=== PATIENT | female | born 1990 | race African-American/Black ===

== ENCOUNTER 2018-05-25 07:41 | Day surgery (SDC) ==
[2018-05-19 10:08] LABS: URINE SOURCE VOIDED
[2018-05-19 10:20] LABS: BASO# 0.01 X1000 (0.0-0.2); BASO% 0.1 % (0.0-0.8); BILIRUBIN URINE NEGATIVE (NEGATIVE); BLOOD URINE NEGATIVE (NEGATIVE); COLOR YELLOW; EOS# 0.11 X1000 (0.0-0.7); EOS% 1.6 % (0.0-10.0); GLUCOSE URINE NEGATIVE (NEGATIVE); HEMATOCRIT 40.3 % (37.0-47.0); HEMOGLOBIN 12.9 g/dL (12.0-16.0); IMM GRAN# 0.03 X1000 (0.0-0.04); IMM GRAN% 0.4 % (0.0-0.5); KETONE URINE NEGATIVE (NEGATIVE); LEUKOCYTES URINE TRACE (NEGATIVE); LYMPH# 1.56 X1000 (1.2-3.4); LYMPH% 22.3 % (20.5-51.1); MCV 87.4 FL (81-99); MONO# 0.34 X1000 (0.11-0.59); MONO% 4.9 % (1.7-9.3); MPV 11.8 FL (7.4-10.4); NEUT# 4.95 X1000 (1.4-6.5); NEUT% 70.7 % (42.2-75.2); NITRITE URINE NEGATIVE (NEGATIVE); PH URINE 7.5; PLT 214 X1000 (130-400); PROTEIN URINE NEGATIVE (NEGATIVE); RBC 4.61 XMIL (4.2-5.4); TURBIDITY URINE CLEAR (CLEAR); UR EPITHELIAL CELLS <10 /HPF (<10); URINE BACTERIA NEGATIVE /HPF; URINE RBC <10 /HPF (<10); URINE WBC <10 /HPF (<10); UROBILINOGEN URINE NORMAL (NORMAL)
--- NOTE | 2018-05-24 21:34 | HISTORY AND PHYSICAL ---
HISTORY OF PRESENT ILLNESS: The patient is a 27-year-old who presents for a preoperative appointment. The patient was diagnosed with abnormal uterine bleeding/heavy menstrual bleeding and failed medical management. The patient is status post treatment with oral contraceptive pills and Depo-Provera without resolution or improvement in symptoms. The patient reports regular menstrual cycle with heavy menstrual bleeding x7 days. The patient and her mother requesting definitive management via hysterectomy. MEDICATIONS: Adderall 20 mg, Vistaril 25 mg. Topamax 50 mg. MEDICAL HISTORY: Bipolar, schizophrenic, borderline mental retardation, intermittent explosive disorder, depression. EDUCATION PROFESSOR HISTORY: Menarche at age 9. Denies prior history of coitus. Last Pap smear 2018. SURGICAL HISTORY: Noncontributory. OBSTETRICAL HISTORY: G0. ALLERGIES: Benadryl, oxcarbazepine, paliperidone, ziprasidone. SOCIAL HISTORY: Denies history of tobacco use. Denies history of alcohol use. FAMILY HISTORY: Denies breast, colon, uterine or ovarian cancer. REVIEW OF SYSTEMS: Negative shortness of breath. Negative chest pain. Negative abdominal pain. Negative headache. Negative nausea or vomiting. PHYSICAL EXAM: VITAL SIGNS: Temperature 98.3, heart rate 79, respiration rate 16, blood pressure 119/70. Weight 230 pounds. Height 5 feet 7 inches, BMI 36 kg/m2. GENERAL: No acute distress. Alert, awake, and oriented x3. CARDIOVASCULAR: Regular rate and rhythm. Positive S1, S2. RESPIRATORY: Clear to auscultation bilaterally. Negative wheezing, rhonchi, or rales. ABDOMEN: Soft, nontender. Positive bowel sounds. EXTREMITIES: Negative calf tenderness. Negative edema. LABS: CBC: White blood cells 7, hemoglobin 12.9, hematocrit 40.3, platelets 214. Creatinine 1. HCG negative. Imaging: Ultrasound showed a 4 cm sized uterus with no pelvic abnormalities. ASSESSMENT: The patient is a 27-year-old, G0, female who presents with abnormal uterine bleeding/heavy menstrual bleeding, status post failed medical management. DIAGNOSIS: N92.0, heavy menstrual bleeding/regular menstrual cycle. PLAN: 1. For robotic assisted total laparoscopic hysterectomy with bilateral salpingectomy. 2. Discussed with the patient and her mother the patient's inability to bear children secondary to hysterectomy. 3. Counseled extensively on alternatives and risks. Risks not limited to regret, infection, bleeding, injury to surrounding organs. 4. The patient and her mother understand the risks and verbally consents to the above procedure. 5. Consent to be signed on day of surgery. 6. Patient informed n.p.o. after midnight the day before scheduled procedure.
[2018-05-25] MEDS ORDERED: DIPRIVAN 1% ONE (07:51)
[2018-05-25] MEDS ORDERED: FENTANYL ONE ×2 (07:51→13:35)
[2018-05-25] MEDS ORDERED: ROBINUL ONE ×2 (07:52→13:39)
[2018-05-25] MEDS ORDERED: ZEMURON ONE (07:52)
[2018-05-25] MEDS ORDERED: DECADRON ONE (07:52)
[2018-05-25] MEDS ORDERED: ZOFRAN ONE (07:52)
[2018-05-25] MEDS ORDERED: XYLOCAINE-MPF 2% ONE (07:52)
[2018-05-25] MEDS ORDERED: REGLAN ONE (08:23)
[2018-05-25] MEDS ORDERED: LR 1,000 ML ONE ×3 (08:23→15:19)
[2018-05-25] MEDS ORDERED: PEPCID ONE (08:23)
[2018-05-25] MEDS ORDERED: KEFZOL 2 GM/D5W 2 GM/50 ML IVPB ONE (08:23)
[2018-05-25] MEDS ORDERED: VERSED ONE (10:45)
[2018-05-25] MEDS ORDERED: QUELICIN (DOSE) ONE (10:45)
[2018-05-25] MEDS ORDERED: SENSORCAINE-MPF 0.5%/EPI 1:200,000 ONE (11:16)
[2018-05-25] MEDS ORDERED: D10W 0 ML ONE (11:16)
--- NOTE | 2018-05-25 11:44 | H&P REVIEW ---
H&P Update H&P Review: H&P was reviewed and patient was examined, No change has occurred in the patient's condition
[2018-05-25 13:08] LABS: URINE SOURCE CATH
[2018-05-25 13:12] LABS: BILIRUBIN URINE NEGATIVE (NEGATIVE); BLOOD URINE LARGE (NEGATIVE); COLOR YELLOW; GLUCOSE URINE NEGATIVE (NEGATIVE); KETONE URINE NEGATIVE (NEGATIVE); LEUKOCYTES URINE NEGATIVE (NEGATIVE); NITRITE URINE NEGATIVE (NEGATIVE); PH URINE 5.5; PROTEIN URINE NEGATIVE (NEGATIVE); SP GRAVITY URINE 1.015; TURBIDITY URINE CLEAR (CLEAR); UR EPITHELIAL CELLS <10 /HPF (<10); URINE BACTERIA NEGATIVE /HPF; URINE WBC <10 /HPF (<10); UROBILINOGEN URINE NORMAL (NORMAL)
[2018-05-25] MEDS ORDERED: NEOSTIGMINE ONE (13:40)
[2018-05-25] MEDS ORDERED: ATARAX PO PRN (14:48)
[2018-05-25] MEDS ORDERED: ZOFRAN IV PRN (14:49)
[2018-05-25] MEDS ORDERED: MYLICON PO PRN (14:49)
[2018-05-25] MEDS ORDERED: MOTRIN PO PRN (14:49)
[2018-05-25] MEDS ORDERED: NORCO-10 PO PRN (14:49)
[2018-05-25] MEDS: DILAUDID ONE ×2 (15:08→15:11)
[2018-05-25] MEDS: TORADOL IV SCH ×2 (19:17→21:50)
[2018-05-25] MEDS ORDERED: TOPAMAX PO SCH (21:00)
--- NOTE | 2018-05-25 21:13 | OPERATIVE NOTE ---
PROCEDURE DATE: 05/25/2018 SURGEON: Dr. Chelly Hahn. ASSISTANTS: None. PREOPERATIVE DIAGNOSIS: Abnormal uterine bleeding/heavy menstrual bleeding. POSTOPERATIVE DIAGNOSIS: Abnormal uterine bleeding/heavy menstrual bleeding. PROCEDURE PERFORMED: Robotic-assisted total laparoscopic hysterectomy with bilateral salpingectomy. ANESTHESIA: General endotracheal anesthesia. ESTIMATED BLOOD LOSS: 25 mL. URINE OUTPUT: 125 mL of clear urine. SURGICAL RISKS: The patient was informed of the risks and benefits of a robotic-assisted total laparoscopic hysterectomy with bilateral salpingectomy. Risks included, but were not limited to bleeding, infection, injury to surrounding organs or tissue. The patient was counseled extensively prior to the procedure about the inability to become following hysterectomy and the patient and patient's mother expressed understanding of this. The patient expressed understanding of the risks involved with the procedure. All questions were answered and the patient consented to the procedure. PROCEDURE DETAILS: The patient was taken to the operating room where a time out was performed to confirm correct patient and correct procedure. The patient was administered preoperative prophylactic intravenous antibiotics. The patient was then positioned on the operating table in the dorsal lithotomy position with legs supported using Carlos-type stirrups. General endotracheal anesthesia was induced. The abdomen and vagina were prepped and draped in the usual sterile fashion. Attention was then directed to the abdomen where a vertical midline incision was performed at the umbilicus. The Veress needle was introduced into the peritoneum. Placement of the needle was confirmed using normal saline solution. Pneumoperitoneum was established with approximately 3 L of carbon dioxide. The Veress needle was removed. Approximately 20 cm from the uterus and 5 cm above the umbilicus, an incision was made and a 12 mm trocar and sleeve were introduced through the incision into the peritoneal. Laparoscopic visualization confirmed the intraperitoneal insertion of the port. Pneumoperitoneum was then maintained using carbon dioxide. A second small horizontal incision was made 10 mm to the left of the midline incision and an 8.5 mm trocar was introduced under direct visualization. A third small horizontal incision was made 10 cm to the right of the midline incision and another 8.5 mm trocar was introduced under direct visualization. Another small incision was then made approximately midway between the midline trocar and the left 8.5 mm trocar and a 5 mm accessory port was inserted under direct visualization. The abdomen was then thoroughly inspected and there was no evidence of injury to the bowel, bladder or vasculature. Attention was then directed to the perineum where a Smith was inserted into the bladder. A bimanual exam was performed and the uterus was found to be anteverted and mobile. A bivalve speculum was then inserted into the vagina. The anterior lip of the cervix was visualized and grasped with a single-tooth tenaculum. The cervix was dilated adequately for introduction of a SnoopWallare uterine manipulator to be inserted through the cervix. Following placement of the uterine manipulator, the speculum was removed from the vagina. The robotic device was then docked. The mesosalpinx below the right tube was cauterized using the fenestrated bipolar device and cut using the monopolar scissors. Attention was then turned to the right round ligament which was cauterized again using the fenestrated bipolar device and cut with the monopolar scissors. The right utero-ovarian ligament was cauterized using the fenestrated bipolar device and cut using monopolar scissors. The monopolar scissors were then used to incise the broad ligament anteriorly and [*] the right side of the bladder at the bladder flap. Attention was then turned to the left side of the uterus and in a similar manner the mesosalpinx below the left fallopian tube was cauterized using the fenestrated bipolar device and cut using the monopolar scissors. The round ligament was cauterized again using the fenestrated bipolar device and cut using monopolar scissors. The utero-ovarian ligament was cauterized with the fenestrated bipolar device and cut with the monopolar scissors. The monopolar scissors were then used to incise the broad ligament anteriorly on the left side and develop the left side of the bladder flap. The uterine arteries were then cauterized using the fenestrated bipolar device and incised using the monopolar device on both the left and right side. The bladder flap was further retracted off the lower uterine segment and off the cervix anteriorly. The cardinal ligaments were then identified, cauterized and cut bilaterally using the fenestrated bipolar device followed by the monopolar scissors. The uterus and cervix were then amputated from the vagina using the monopolar cautery. The uterus was then extracted from the vagina. The vaginal cuff was closed using a running 0 V-Loc synthetic absorbable suture. Good hemostasis was obtained and noted. The abdomen was irrigated and good hemostasis again was noted. Surgicel was applied to the cuff to prevent adhesion formation along the vaginal cuff. Instruments were then removed from the abdomen. A Evan-Jacobs was used and placed in the midline port where the 12 mm trocar was placed. Once the device was inserted through the trocar, the trocar device was removed and a suture was placed through the Evan-Jacobs device to close the fascia, peritoneum and muscles using a 0 Vicryl under direct visualization. Pneumoperitoneum was then evacuated and the skin incisions were closed using 3-0 Monocryl and Dermabond. All needle, sponge and instrument counts were noted to be correct x 2 at the completion of the procedure. The patient tolerated the procedure well and was transferred to the recovery room in stable condition.
[2018-05-25] MEDS: PERIDEX MT SCH (22:00)
[2018-05-26] MEDS: TORADOL IV SCH ×2 (01:42→09:18)
[2018-05-26] MEDS: LR 1,000 ML IV SCH ×2 (01:42→09:17)
[2018-05-26 07:00] LABS: HEMATOCRIT 40.7 % (37.0-47.0); HEMOGLOBIN 13.3 g/dL (12.0-16.0); MCH 28.7 PG (27-31); MCHC 32.7 g/dL (33-37); MCV 87.7 FL (81-99); MPV 11.4 FL (7.4-10.4); RBC 4.64 XMIL (4.2-5.4); WBC 16.12 X1000 (4.8-10.8)
[2018-05-26 07:40] VITALS: BP 118/75
[2018-05-26] MEDS ORDERED: ADDERALL PO SCH (09:00)
[2018-05-26] MEDS ORDERED: TOPAMAX PO SCH (09:00)
[2018-05-26] MEDS: PERIDEX MT SCH (09:18)
--- NOTE | 2018-05-26 12:52 | OB/GYN PROGRESS NOTE ---
Progress Note INVENTORY CONTROL SUPERVISOR - . Patient Problems: Current Active Problems Problem Status Onset S/P hysterectomy Acute INVENTORY CONTROL SUPERVISOR Progress Note: Vital Signs - 24 hr 05/25/18 14:40 05/25/18 14:50 05/25/18 15:00 Temperature 98.3 F Pulse Rate 75 68 74 Respiratory Rate 20 24 12 Blood Pressure 123/83 Blood Pressure [Left Arm] 123/67 112/56 116/59 O2 Sat by Pulse Oximetry 97 99 100 05/25/18 15:10 05/25/18 15:21 05/25/18 15:31 Temperature Pulse Rate 63 66 65 Respiratory Rate 25 H 20 19 Blood Pressure Blood Pressure [Left Arm] 113/65 131/67 120/66 O2 Sat by Pulse Oximetry 100 100 100 05/25/18 15:55 05/25/18 15:56 05/25/18 16:00 Temperature Pulse Rate 65 66 71 Respiratory Rate Blood Pressure 118/63 126/63 134/70 Blood Pressure [Left Arm] O2 Sat by Pulse Oximetry 100 93 L 05/25/18 16:15 05/25/18 16:30 05/25/18 16:45 Temperature Pulse Rate 63 60 56 L Respiratory Rate Blood Pressure 108/92 118/71 114/65 Blood Pressure [Left Arm] O2 Sat by Pulse Oximetry 05/25/18 17:00 05/25/18 17:30 05/25/18 18:00 Temperature Pulse Rate 56 L 73 65 Respiratory Rate Blood Pressure 107/68 118/75 100/58 Blood Pressure [Left Arm] O2 Sat by Pulse Oximetry 05/25/18 18:30 05/25/18 19:00 05/25/18 21:00 Temperature 98.3 F Pulse Rate 57 L 55 L 52 L Respiratory Rate Blood Pressure 98/64 101/67 100/67 Blood Pressure [Left Arm] O2 Sat by Pulse Oximetry 99 100 05/26/18 00:07 05/26/18 05:00 05/26/18 07:39 Temperature 97.8 F 98.4 F 98.3 F Pulse Rate 64 58 L 75 Respiratory Rate 20 Blood Pressure 106/79 101/57 118/75 Blood Pressure [Left Arm] O2 Sat by Pulse Oximetry 100 100 99 Laboratory Results - last 24 hr 05/25/18 05/26/18 12:45 06:38 WBC 16.12 H RBC 4.64 Hgb 13.3 Hct 40.7 MCV 87.7 MCH 28.7 MCHC 32.7 L RDW Std Deviation 14.0 Plt Count 233 MPV 11.4 H Urine Source CATH Urine Color YELLOW Urine Turbidity CLEAR Urine pH 5.5 Ur Specific Stuart 1.015 Urine Protein NEGATIVE Ur Glucose (Stick) NEGATIVE Ur Ketones (Stick) NEGATIVE Urine Blood LARGE A Urine Nitrite NEGATIVE Urine Bilirubin NEGATIVE Urobilinogen Dipstick NORMAL Urine Leukocytes NEGATIVE Urine WBC (Auto) <10 Urine RBC (Auto) 10-20 A U Epithel Cells (Auto) <10 Urine Bacteria (Auto) NEGATIVE HPI: Pt seen and examined. Currently w/o complaints. Pain well controlled over night. Tolerating regular diet, denies N/V. Ambulating and urinating w/o difficulty. Denies fever/chills/SOB/CP. VS: please see above GEN: NAD CV: RRR, +S1S2 RESP: CTA b/l ABD: soft, NTTP, Port sites C/D/I x 4 : neg VB, +pink spotting EXT: neg CT LABS: please see above ASSESSMENT: 27yo G0 POD#1 s/p robotic assisted TLH with b/l salpingectomy secondary to AUB/HMB PLAN: -PO pain meds -Con't home meds -OOB-->ambulation -núñez d/c'ed -regular diet -plan for d/c home today FOLLW-UP: Post-op assessment scheduled in [address] Love Hahn COUNSELING: -pt advised to contact provider with: temperatures greater than 100.4 abnormal vaginal bleeding abnormal vaginal discharge severe abdominal pain -pt also advised: -no heavy lifting -no tub baths, only showers
== END 2018-05-26 14:10 | disposition home or self-care (01) ==
LOC: OR 07:41 → OPS 07:41 → INTOOBSV 15:37 → DIRADM 15:37 → 4N 15:38 → OR 05-26 14:10
PROVIDERS: ATTEND Obstetrics & Gynecology
CPT/HCPCS: 81001; 82565; 84703; 85025; 85027; 86850; 86900; 86901; 88307; A9270; J0330; J0690; J1100; J1170; J1885; J2250; J2405; J3010; J7120; S2900